=== PATIENT | female | born 1975 | race Caucasian/White ===

== ENCOUNTER 2016-11-28 15:41 | Emergency (ER) | payer BC ==
[2016-11-28 21:45] LABS: HEMOGLOBIN 13.3 gm/dl (12.3-15.3); RED BLOOD COUNT 4.61 M/UL (4.00-5.10)
[2016-11-28 21:56] LABS: BUN/CREATININE RATIO 14 (0-10)
== END 2016-11-28 23:25 | disposition home or self-care (01) ==
LOC: ER1 15:41
PROVIDERS: Emergency Medicine
DX: N39.0 Urinary tract infection, site not specified (principal); F17.200 Nicotine dependence, unspecified, uncomplicated; Z90.5 Acquired absence of kidney
CPT/HCPCS: 36415; 80053; 81001; 84703; 85025; 87040; 87077; 87086; 87186; 96365; 99284; J0696; J7050

== ENCOUNTER 2021-10-04 05:06 | Emergency (ER) | payer SELFPAY ==
[2021-10-04 05:40] LABS: HEMOGLOBIN 15.2 gm/dl (12.3-15.3); RED BLOOD COUNT 5.12 M/UL (4.00-5.10); WHITE BLOOD COUNT 14.3 K/UL (4.5-11.0)
[2021-10-04 05:59] LABS: BUN/CREATININE RATIO 14 (0-10)
[2021-10-04] MEDS ORDERED: OMNICEF 300 MG300 MG PO (06:35)
[2021-10-04] MEDS ORDERED: PYRIDIUM200 MG PO (06:35)
== END 2021-10-04 06:48 | disposition home or self-care (01) ==
LOC: ER1 05:06
PROVIDERS: Family Medicine
DX: N39.0 Urinary tract infection, site not specified (principal); R31.9 Hematuria, unspecified; E11.9 Type 2 diabetes mellitus without complications; I10 Essential (primary) hypertension; F17.200 Nicotine dependence, unspecified, uncomplicated; Z79.84 Long term (current) use of oral hypoglycemic drugs; Z88.2 Allergy status to sulfonamides; Z90.5 Acquired absence of kidney
CPT/HCPCS: 80048; 81001; 85025; 99284